=== PATIENT | male | born 1990 | race Caucasian/White ===

== ENCOUNTER 2016-07-23 06:59 | Day surgery (SDC) | payer BC ==
[~2016-07-23 06:59] MED LIST: LIDOCAINE W/ SODIUM BICARB 0.5 ML SYR ONE; Lactated Ringers 1,000 ML PRIMARY IV ONE
[2016-07-23] MEDS ORDERED: LIDOCAINE 2% VISCOUS(20 MG/1 ML) - 15 ML UD CUP PO ONE (08:04)
[2016-07-23] MEDS ORDERED: MIDAZOLAM 5 MG/1 ML ONE ×2 (08:19)
--- NOTE | 2016-07-23 08:54 | GEN.OPNOTE ---
EGD / Colonoscopy Report Surgery Date: 07/23/16 Preoperative Diagnosis: Abdominal pain. GERD. Painful bowel movements. Bright red blood per rectum. Postoperative Diagnosis: Same. Procedure: #1 esophagogastroduodenoscopy with biopsy. #2 complete colonoscopy. Surgeon: Valdemar Amin MD Anesthesia Provider: Jazmyne Jha CRNA Anesthesia Type: MAC Indications: See preoperative diagnosis. EGD Findings: Esophagus: [Normal] GE Junction : [Inflammatory changes] Fundus : [Normal] Body : [Normal] Prepyloric : [Mild erythema] Small Intestine : [Normal] A lubricated flexible upper endoscope was inserted and passed through the esophagus and stomach into the duodenum. Duodenum and duodenal bulb were unremarkable. Pyloric channel was patent. There is some erythema in the antrum. Biopsies were taken. The remainder of the gastric mucosa was unremarkable. Scope was withdrawn into distal esophagus. There were changes of reflux. Multiple biopsies were taken. Hemostasis was assured. The scope was withdrawn through the remainder of a normal-appearing esophagus and brought through the hypopharynx under suction completing the procedure. Colonoscopy Findings: Prep : [Good] Cecum : [Normal] Ascending : [Normal] Transverse : [Normal ] Sigmoid : [Normal] Rectum :[Normal] Digital Rectal Exam : [Normal] Anoscopy:[Superficial posterior crack. Mild bleeding. No well-established fissure. A lubricated flexible colonoscope was inserted and passed to the blind end of the cecum. Air was aspirated as the scope was withdrawn. The entire colonoscopy was normal without polyp, tumor, neoplastic mass, infectious or inflammatory process. The scope was withdrawn completing the procedure. Patient tolerated procedure well without complication. He was taken to outpatient surgery in stable condition. Follow-up will be with my office on an as-needed basis. We'll have him place hydrocortisone ointment on his perianal area twice a day for a week. We will call the biopsy results when available.
[2016-07-23 10:37] VITALS: TEMP 97.5
[2016-07-23 10:45] VITALS: RESP 18
== END 2016-07-23 09:39 | disposition home or self-care (01) ==
LOC: SDSC 06:59
PROVIDERS: ATTEND Surgery
DX: K21.0 Gastro-esophageal reflux disease with esophagitis (principal); K62.5 Hemorrhage of anus and rectum
CPT/HCPCS: 43239; 45378; J2704; J2250; J7120